=== PATIENT | male | born 1960 | race Two or more races ===

== ENCOUNTER 2019-01-13 12:47 | Emergency (ER) | payer OTHER ==
[~2019-01-13] VITALS: Ht 170.2 cm; Wt 92.0 kg
[2019-01-13 13:08] VITALS: Ht 170.2 cm; Wt 92.0 kg
[2019-01-13] MEDS ORDERED: CEFTRIAXONE 1 GM INJ IM ONE (15:30)
[2019-01-13] MEDS ORDERED: MAGN400O19 PO (15:55)
[2019-01-13] MEDS ORDERED: CIPR500T4 PO (15:55)
[2019-01-13] MEDS ORDERED: METR500T PO (15:55)
[2019-01-13] MEDS ORDERED: DOCU-144 PO (15:55)
--- NOTE | 2019-01-13 15:59 | ERD ---
ER Documentation Chief Complaint Chief Complaint fever, constipation, painful urination ROS All systems reviewed and are negative except as per history of present illness. Medications Home Meds Active Scripts Magnesium Hydroxide* (Milk Of Magnesia*) 400 Mg/5 Ml Oral.susp, 30 ML PO DAILY for constipation for 7 Days, #1 BOTTLE Prov:GOVIND KELLER DO 01/13/19 Docusate Sodium* (Colace*) 100 Mg Capsule, 100 MG PO BID PRN for CONSTIPATION, #30 CAP Prov:GOVIND KELLER DO 01/13/19 Metronidazole* (Flagyl*) 500 Mg Tablet, 500 MG PO TID for GI infection for 7 Days, #21 TAB Prov:GOVIND KELLER DO 01/13/19 Ciprofloxacin Hcl* (Ciprofloxacin Hcl*) 500 Mg Tablet, 500 MG PO BID for 7 Days, #14 TAB Prov:GOVIND KELLER DO 01/13/19 Allergies Allergies: Coded Allergies: No Known Allergy (Unverified , 01/13/19) PMhx/Soc Medical and Surgical Hx: pt denies Medical Hx, pt denies Surgical Hx Hx Alcohol Use: No Hx Substance Use: No Hx Tobacco Use: No Smoking Status: Never smoker Physical Exam Vitals Vital Signs Date Temp Pulse Resp B/P (MAP) Pulse Ox O2 O2 Flow FiO2 Time Delivery Rate 01/13/19 99.9 92 19 140/73 98 13:08 (95) Physical Exam Const: No acute distress Head: Atraumatic Eyes: Normal Conjunctiva ENT: Normal External Ears, Nose and Mouth. Neck: Full range of motion. No meningismus. Resp: Clear to auscultation bilaterally Cardio: Regular rate and rhythm, no murmurs Abd: Soft, non tender, non distended. Normal bowel sounds Skin: No petechiae or rashes Back: No midline or flank tenderness Ext: No cyanosis, or edema Neur: Awake and alert Psych: Normal Mood and Affect Result Diagram: 01/13/19 1348 01/13/19 1348 Results 24 hrs Laboratory Tests Test 01/13/19 13:44 01/13/19 13:48 Bedside Urine pH (LAB) 6.5 Bedside Urine Protein (LAB) Trace Bedside Urine Glucose (UA) 0.25% Bedside Urine Ketones (LAB) Negative Bedside Urine Blood Trace-intact Bedside Urine Nitrite (LAB) Negative Bedside Urine Leukocyte Esterase (L 2+ White Blood Count 20.9 10^3/ul Red Blood Count 5.12 10^6/ul Hemoglobin 15.1 g/dl Hematocrit 43.7 % Mean Corpuscular Volume 85.4 fl Mean Corpuscular Hemoglobin 29.5 pg Mean Corpuscular Hemoglobin Concent 34.6 g/dl Red Cell Distribution Width 12.9 % Platelet Count 247 10^3/UL Mean Platelet Volume 10.1 fl Immature Granulocytes % 1.000 % Neutrophils % 86.0 % Lymphocytes % 7.3 % Monocytes % 5.1 % Eosinophils % 0.2 % Basophils % 0.4 % Nucleated Red Blood Cells % 0.0 /100WBC Immature Granulocytes # 0.200 10^3/ul Neutrophils # 18.0 10^3/ul Lymphocytes # 1.5 10^3/ul Monocytes # 1.1 10^3/ul Eosinophils # 0.1 10^3/ul Basophils # 0.1 10^3/ul Nucleated Red Blood Cells # 0.0 10^3/ul Urine Color YELLOW Urine Clarity SLIGHTLY CLOUDY Urine pH 6.0 Urine Specific [place] 1.011 Urine Ketones NEGATIVE mg/dL Urine Nitrite NEGATIVE mg/dL Urine Bilirubin NEGATIVE mg/dL Urine Urobilinogen NEGATIVE mg/dL Urine Leukocyte Esterase 3+ Violet/ul Urine Microscopic RBC 3 /HPF Urine Microscopic WBC 80 /HPF Urine Amorphous Crystals FEW /HPF Urine Bacteria FEW /HPF Urine Hemoglobin 1+ mg/dL Urine Glucose 2+ mg/dL Urine Total Protein NEGATIVE mg/dl Sodium Level 136 mmol/L Potassium Level 4.1 mmol/L Chloride Level 96 mmol/L Carbon Dioxide Level 26 mmol/L Anion Gap 14 Blood Urea Nitrogen 16 mg/dl Creatinine 0.80 mg/dl Est Glomerular Filtrat Rate mL/min > 60 mL/min Glucose Level 212 mg/dl Calcium Level 10.0 mg/dl Total Bilirubin 1.1 mg/dl Direct Bilirubin 0.00 mg/dl Indirect Bilirubin 1.1 mg/dl Aspartate Amino Transf (AST/SGOT) 18 IU/L Alanine Aminotransferase (ALT/SGPT) 18 IU/L Alkaline Phosphatase 85 IU/L Total Protein 7.8 g/dl Albumin 4.4 g/dl Globulin 3.40 g/dl Albumin/Globulin Ratio 1.29 Current Medications Medications Dose Sig/Vanna Start Time Status Last (Trade) Ordered Route PRN Stop Time Admin Dose Reason Admin Ceftriaxone 1 gm ONCE ONCE 01/13/19 DC 01/13/19 Sodium IM 15:30 15:57 (Rocephin) 01/13/19 15:31 Lidocaine 5 ml ONCE ONCE 01/13/19 01/13/19 (Xylocaine INFIL 16:00 15:57 1% (Mpf)) 01/13/19 16:01 Departure Diagnosis: Primary Impression: Constipation Constipation type: unspecified constipation type Qualified Codes: K59.00 - Constipation, unspecified Additional Impression: UTI (urinary tract infection) Urinary tract infection type: site unspecified Hematuria presence: without hematuria Qualified Codes: N39.0 - Urinary tract infection, site not specified Condition: Fair Patient Instructions: Understanding Urinary Tract Infections (UTIs), Constipation (Adult) Referrals: [facility] YOU HAVE RECEIVED A MEDICAL SCREENING EXAM AND THE RESULTS INDICATE THAT YOU DO NOT HAVE A CONDITION THAT REQUIRES URGENT TREATMENT IN THE EMERGENCY DEPARTMENT. FURTHER EVALUATION AND TREATMENT OF YOUR CONDITION CAN WAIT UNTIL YOU ARE SEEN IN YOUR DOCTORS OFFICE WITHIN THE NEXT 1-2 DAYS. IT IS YOUR RESPONSIBILITY TO MAKE AN APPOINTMENT FOR FOLOW-UP CARE. IF YOU HAVE A PRIMARY DOCTOR --you should call your primary doctor and schedule an appointment IF YOU DO NOT HAVE A PRIMARY DOCTOR YOU CAN CALL OUR PHYSICIAN REFERRAL HOTLINE AT IF YOU CAN NOT AFFORD TO SEE A PHYSICIAN YOU CAN CHOSE FROM THE FOLLOWING [facility] [address] [facility]. [facility] [address] [facility]. [facility] [address] [facility] [address] [facility] [facility] [address] [facility]. [facility]. [address] Additional Instructions: Call your primary care doctor TOMORROW for an appointment during the next 1-2 days.See the doctor sooner or return here if your condition worsens before your appointment time. GOVIND KELLER DO Jan 13, 2019 15:59
[2019-01-13] MEDS ORDERED: LIDOCAINE 1% (MPF) 5 ML VIAL INFIL ONE (16:00)
[2019-01-13 16:22] VITALS: BP 122/74; PULSE 97; RESP 18
== END 2019-01-13 16:22 | disposition home or self-care (01) ==
LOC: FTE 12:47
DX: K59.00 Constipation, unspecified (principal); N39.0 Urinary tract infection, site not specified
CPT/HCPCS: 36415; 74018; 80053; 81001; 85025; 87086; 96372; J0696; Z7502; Z7610; 81003

== ENCOUNTER 2019-02-17 20:54 | Emergency (ER) | payer OTHER ==
[~2019-02-17] VITALS: Ht 170.2 cm; Wt 94.3 kg
[~2019-02-17 20:54] MED LIST: CIPR500T4 PO; DOCU-144 PO; MAGN400O19 PO; METR500T PO
[2019-02-17 21:05] VITALS: BP 142/77; PULSE 78; RESP 18; Ht 170.2 cm; Wt 94.3 kg
[2019-02-17] MEDS ORDERED: KETOROLAC 60 MG INJ IM STA (22:51)
[2019-02-17] MEDS ORDERED: INDO-39 PO (23:20)
--- NOTE | 2019-02-18 02:01 | ERD ---
ER Documentation Chief Complaint Chief Complaint R hand/wrist pain/swelling x 4days; hx gout HPI History of Present Illness: 58-year-old male who reports a past medical history of hypertension, diabetes, hyperlipidemia, gout coming in today with complaint of right hand and wrist pain and swelling is been present for 4 days. Patient reports similar symptoms to his left ankle last week. Patient denies any other associated symptoms. Denies fever, chills, malaise. Patient reports LAST exacerbation of gout was last year during the summer. At home pharmacological/nonpharmacological treatment for symptoms: Colchicine Denies social concerns; Denies recent foreign travel ROS All systems reviewed and are negative except as per history of present illness. Medications Home Meds Active Scripts Indomethacin* (Indocin*) 50 Mg Cap, 50 MG PO TID for gout flare up/joint pain, # 60 CAP Prov:GUADALUPE BEGUM [employer] 02/17/19 Magnesium Hydroxide* (Milk Of Magnesia*) 400 Mg/5 Ml Oral.susp, 30 ML PO DAILY for constipation for 7 Days, #1 BOTTLE Prov:KRISHNAGOVIND 01/13/19 Docusate Sodium* (Colace*) 100 Mg Capsule, 100 MG PO BID PRN for CONSTIPATION, #30 CAP Prov:GOVIND KELLER DO 01/13/19 Metronidazole* (Flagyl*) 500 Mg Tablet, 500 MG PO TID for GI infection for 7 Days, #21 TAB Prov:GOVIND KELLER DO 01/13/19 Ciprofloxacin Hcl* (Ciprofloxacin Hcl*) 500 Mg Tablet, 500 MG PO BID for 7 Days, #14 TAB Prov:GOVIND KELLER DO 01/13/19 Allergies Allergies: Coded Allergies: No Known Allergy (Unverified , 01/13/19) PMhx/Soc Medical and Surgical Hx: pt denies Surgical Hx Hx Cardiac Disorders: Yes (htn, hld) Hx Miscellaneous Medical Probl: Yes (gout) Hx Alcohol Use: No Hx Substance Use: No Hx Tobacco Use: Yes Smoking Status: Current every day smoker FmHx Family History: No diabetes, No coronary disease Physical Exam Vitals Vital Signs Date Temp Pulse Resp B/P (MAP) Pulse Ox O2 O2 Flow FiO2 Time Delivery Rate 02/17/19 98.2 78 18 142/77 98 21:05 (98) Physical Exam Const: No acute distress Head: Atraumatic Eyes: Normal Conjunctiva ENT: Normal External Ears, Nose and Mouth. Neck: Full range of motion. No meningismus. Resp: Clear to auscultation bilaterally Cardio: Regular rate and rhythm, no murmurs Abd: Soft, non tender, non distended. Normal bowel sounds Skin: No petechiae or rashes Back: No midline or flank tenderness Ext: No cyanosis; tenderness to palpation to right wrist and hand, full range of motion, neurovascularly intact, no warmth, no redness Neur: Awake and alert Psych: Normal Mood and Affect Result Diagram: 02/17/19215402/17/192155 Results 24 hrs Laboratory Tests Test 02/17/19 21:55 02/17/19 21:56 White Blood Count 9.5 10^3/ul Red Blood Count 4.61 10^6/ul Hemoglobin 13.7 g/dl Hematocrit 40.3 % Mean Corpuscular Volume 87.4 fl Mean Corpuscular Hemoglobin 29.7 pg Mean Corpuscular Hemoglobin Concent 34.0 g/dl Red Cell Distribution Width 13.2 % Platelet Count 271 10^3/UL Mean Platelet Volume 9.9 fl Immature Granulocytes % 0.300 % Neutrophils % 62.2 % Lymphocytes % 22.8 % Monocytes % 10.9 % Eosinophils % 3.4 % Basophils % 0.4 % Nucleated Red Blood Cells % 0.0 /100WBC Immature Granulocytes # 0.030 10^3/ul Neutrophils # 5.9 10^3/ul Lymphocytes # 2.2 10^3/ul Monocytes # 1.0 10^3/ul Eosinophils # 0.3 10^3/ul Basophils # 0.0 10^3/ul Nucleated Red Blood Cells # 0.0 10^3/ul Sodium Level 140 mmol/L Potassium Level 3.7 mmol/L Chloride Level 106 mmol/L Carbon Dioxide Level 26 mmol/L Anion Gap 8 Blood Urea Nitrogen 15 mg/dl Creatinine 0.65 mg/dl Est Glomerular Filtrat Rate mL/min > 60 mL/min Glucose Level 241 mg/dl Uric Acid 4.7 mg/dl Calcium Level 9.1 mg/dl Total Bilirubin 0.5 mg/dl Direct Bilirubin 0.00 mg/dl Indirect Bilirubin 0.5 mg/dl Aspartate Amino Transf (AST/SGOT) 20 IU/L Alanine Aminotransferase (ALT/SGPT) 28 IU/L Alkaline Phosphatase 75 IU/L Total Protein 7.2 g/dl Albumin 4.0 g/dl Globulin 3.20 g/dl Albumin/Globulin Ratio 1.25 Current Medications Medications Dose Sig/Vanna Start Time Status Last (Trade) Ordered Route PRN Stop Time Admin Dose Reason Admin Ketorolac 60 mg ONCE STAT 02/17/19 DC 02/17/19 Tromethamine IM 22:51 23:15 (Toradol) 02/17/19 22:56 Procedures/MDM ED course includes a thorough examination and history. Medications: Ketorolac Imaging: Labs: CBC, CMP, uric acid Low suspicion for life-threatening medical emergency. Low suspicion for infectious emergency that requires use of antibiotics. Otherwise healthy patient presenting with constellation of symptoms likely representing acute wrist pain likely related to arthritis as characterized by history, physical exam findings, lab findings. CBC: no e/o of systemic infection or severe anemia. CMP: no e/o severe acidosis, alkalosis, renal failure, diabetic ketoacidosis, liver disease. Acid within normal limits. Patient reassessment: Orders for Osvaldo wrap and ketorolac before discharge. Patient hemodynamically stable. No respiratory distress, otherwise relatively well appearing and nontoxic. Disposition given. Patient educated on diagnoses, prescriptions, follow-up care, return precautions. Strict return precautions given for worsening condition; questions answered discharge. Disposition for discharge with followup in 2 days with PCP/clinic. Departure Diagnosis: Primary Impression: Acute wrist pain Laterality: right Qualified Codes: M25.531 - Pain in right wrist Additional Impression: Hx of gout Condition: Stable Patient Instructions: Gouty Arthritis, Gout Diet Referrals: [facility] YOU HAVE RECEIVED A MEDICAL SCREENING EXAM AND THE RESULTS INDICATE THAT YOU DO NOT HAVE A CONDITION THAT REQUIRES URGENT TREATMENT IN THE EMERGENCY DEPARTMENT. FURTHER EVALUATION AND TREATMENT OF YOUR CONDITION CAN WAIT UNTIL YOU ARE SEEN IN YOUR DOCTORS OFFICE WITHIN THE NEXT 1-2 DAYS. IT IS YOUR RESPONSIBILITY TO MAKE AN APPOINTMENT FOR FOL-UP CARE. IF YOU HAVE A PRIMARY DOCTOR --you should call your primary doctor and schedule an appointment IF YOU DO NOT HAVE A PRIMARY DOCTOR YOU CAN CALL OUR PHYSICIAN REFERRAL HOTLINE AT IF YOU CAN NOT AFFORD TO SEE A PHYSICIAN YOU CAN CHOSE FROM THE FOLLOWING [facility] [address] [facility]. [facility] [address] [facility] [address] [facility]. [facility] [address] [facility] [facility] [address] [facility]. [facility]. [address] [facility]. [facility] YOU HAVE RECEIVED A MEDICAL SCREENING EXAM AND THE RESULTS INDICATE THAT YOU DO NOT HAVE A CONDITION THAT REQUIRES URGENT TREATMENT IN THE EMERGENCY DEPARTMENT. FURTHER EVALUATION AND TREATMENT OF YOUR CONDITION CAN WAIT UNTIL YOU ARE SEEN IN YOUR DOCTORS OFFICE WITHIN THE NEXT 1-2 DAYS. IT IS YOUR RESPONSIBILITY TO MAKE AN APPOINTMENT FOR FOLOW-UP CARE. IF YOU HAVE A PRIMARY DOCTOR --you should call your primary doctor and schedule and appointment IF YOU DO NOT HAVE A PRIMARY DOCTOR YOU CAN CALL OUR PHYSICIAN REFERRAL HOTLINE AT . IF YOU CAN NOT AFFORD TO SEE A PHYSICIAN YOU CAN CHOSE FROM THE FOLLOWING [facility] INSTITUTIONS: [facility] [address] [place] [address] [facility] [address] [place] [address] [facility] [address] [place] [address] Additional Instructions: Thank you very much for allowing us to participate in your care. Your health and safety is our top priority at [facility]. It is important to read all discharge instructions and education provided in your discharge packet. *Your complete blood count, comprehensive metabolic panel, and uric acid levels were within normal limits.* Call your primary care doctor TOMORROW for an appointment during the next 2-4 days and bring all the information and medications prescribed. Have prescriptions filled and follow precisely the directions on the label. If the symptoms get worse and your provider is unavailable, return to the Emergency Department immediately. GUADALUPE BEGUM NP February 18, 2019 02:01
== END 2019-02-17 23:36 | disposition home or self-care (01) ==
LOC: FTE 20:54
DX: M25.531 Pain in right wrist (principal); I10 Essential (primary) hypertension; E11.9 Type 2 diabetes mellitus without complications; F17.210 Nicotine dependence, cigarettes, uncomplicated; Z87.39 Personal history of other diseases of the musculoskeletal system and connective tissue
CPT/HCPCS: 80053; 84560; 85025; 96372; J1885; Z7502

== ENCOUNTER 2019-06-11 10:56 | Emergency (ER) | payer OTHER ==
[~2019-06-11] VITALS: Wt 88.6 kg
[~2019-06-11 10:56] MED LIST changes: +CYCL10TA7 PO; +DICL100G37 TOP; +HYDR-4011 PO; +IBUP-1542 PO; +INDO-39 PO
[2019-06-11 11:02] VITALS: BP 152/74; PULSE 72; RESP 20
[2019-06-11] MEDS ORDERED: KETOROLAC 60 MG INJ IM STA (12:47)
== END 2019-06-11 13:51 | disposition home or self-care (01) ==
LOC: FTE 10:56
DX: M25.512 Pain in left shoulder (principal); I10 Essential (primary) hypertension; F17.210 Nicotine dependence, cigarettes, uncomplicated
CPT/HCPCS: 73030; 96372; J1885; Z7502

== ENCOUNTER 2019-06-27 20:32 | Emergency (ER) | payer OTHER ==
[~2019-06-27] VITALS: Ht 167.6 cm; Wt 100.0 kg
[~2019-06-27 20:32] MED LIST changes: +ALBU18HF INHALATION; +AMLO-145 NGT; +ASPI-903 PO; +ATOR40TA68 ORAL; +GLIM4TAB3 ORAL; +HYDR-3980 PO; -INDO-39 PO; +INDO50CA PO; +INSU100I33 SC; +LOSA50TA14 ORAL; +NALO4SPR NS; +NAPR-985 PO; +SITA1TAB5 ORAL; +TIOT18CA INHALATION
[2019-06-27 20:39] VITALS: Ht 167.6 cm; Wt 100.0 kg
[2019-06-27] MEDS ORDERED: KETOROLAC 30 MG INJ IM STA (22:38)
[2019-06-27] MEDS ORDERED: DEXAMETHASONE 10 MG/ML 1 ML INJ IM ONE (23:00)
[2019-06-27 23:27] VITALS: BP 179/82; PULSE 60; RESP 18
== END 2019-06-27 23:30 | disposition home or self-care (01) ==
LOC: FTE 20:32
DX: M25.552 Pain in left hip (principal); I10 Essential (primary) hypertension; E11.9 Type 2 diabetes mellitus without complications; Z87.891 Personal history of nicotine dependence
CPT/HCPCS: 96372; J1100; J1885; Z7502